=== PATIENT | male | born 1995 | race American Indian/Alaskan Native ===

== ENCOUNTER 2022-09-04 20:19 | Emergency (ER) | payer MEDICAID | END 2022-09-04 22:53 | disposition home or self-care (01) | LOC: JP.ED 20:19 | DX: L03.116 Cellulitis of left lower limb (principal); Z86.16 Personal history of COVID-19; Z79.899 Other long term (current) drug therapy | CPT/HCPCS: 36415; 85025; 85379; 99283 ==

== ENCOUNTER 2023-06-01 00:16 | Emergency (ER) | payer MEDICAID | END 2023-06-01 00:48 | disposition home or self-care (01) | LOC: JP.ED 00:16 | DX: L03.115 Cellulitis of right lower limb (principal); E11.9 Type 2 diabetes mellitus without complications; Z86.16 Personal history of COVID-19; Z79.84 Long term (current) use of oral hypoglycemic drugs; Z79.899 Other long term (current) drug therapy | CPT/HCPCS: 99283 ==